=== PATIENT | male | born 1970 | race Two or more races ===

== ENCOUNTER → 2016-08-08 | Outpatient (CLI) | payer MEDICAID, MEDICARE | LOC: RAD 08:39 | PROVIDERS: ATTEND Internal Medicine | DX: N18.3 Chronic kidney disease, stage 3 (moderate) (principal); Z94.4 Liver transplant status | CPT/HCPCS: 76705; 93976 ==

== ENCOUNTER → 2016-08-11 | Outpatient (CLI) | payer MEDICARE | LOC: RAD 09:08 | PROVIDERS: ATTEND Internal Medicine Gastroenterology | DX: K44.0 Diaphragmatic hernia with obstruction, without gangrene (principal); R07.1 Chest pain on breathing; R05 Cough; Z94.4 Liver transplant status | CPT/HCPCS: 71260; 74160 ==

== ENCOUNTER 2017-04-24 20:02 | Emergency (ER) | payer MEDICARE, MEDICAID ==
--- NOTE | 2017-04-24 21:18 | ER Document Report ---
HPI - HPI Patient complains to provider of: lump in neck Onset: This morning Onset/Duration: Sudden Pain Level: Denies Context: 46 yo male noticed right neck lump this morning. Taking augmentin for respiraotry intection and eye drops for conjunctivitis. no fever. No pain. 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 IN LAST 30 DAYS: No - HEENT HEENT: Normocephalic. negative: Conjuctival Injection, Pharyngeal Erythema, Tympanic Membrane Red Notes: less than 1 cm right mid posterior cervial non tender, mobile, not red lymph node - RESPIRATORY O2 Sat by Pulse Oximetry: 95 Course - Vital Signs Vital signs: Temp Pulse Resp BP Pulse Ox 98.4 F 66 16 94/61 L 95 04/24/17 20:10 04/24/17 20:10 04/24/17 20:10 04/24/17 20:10 04/24/17 20:10 Discharge - Discharge Clinical Impression: right posterior cervial lymph node Condition: Good Disposition: HOME, SELF-CARE Instructions: Cervical Lymphadenitis ([facility]) Additional Instructions: Continue the antibiotics that you got from the urgent care Follow-up Dr. Gordon Return for any concerns to the emergency room. Referrals: VANDANA GORDON DO [Primary Care Provider] - Follow up in 1 week
[2017-04-24 21:41] VITALS: BP 97/68
== END 2017-04-24 21:41 | disposition home or self-care (01) ==
LOC: ER 20:02
DX: R22.1 Localized swelling, mass and lump, neck (principal)
CPT/HCPCS: 99283

== ENCOUNTER → 2017-05-19 | Outpatient (CLI) | payer MEDICARE, MEDICAID ==
--- NOTE | 2017-05-19 10:29 | RADIOLOGY REPORT (SQ) ---
EXAM DESCRIPTION: U/S ABDOMEN LIMITED W/O DOP COMPLETED DATE/TIME: 05/19/2017 9:59 am REASON FOR STUDY: S/P LIVER TRANSPLANT (Z94.4), HEPATOCELLULAR CARCINOMA (C22.0), ALCOHOLIC C Z29.8 ENCOUNTER FOR OTHER SPECIFIED PROPHYLACTIC MEASURES Z94.4 LIVER TRANSPLANT STATUS E27.40 UNSPECIFI ED ADRENOCORTICAL INSUFFICIENCY COMPARISON: August. TECHNIQUE: Dynamic and static grayscale images acquired of the abdomen and recorded on PACS. Additio nal selected color Doppler and spectral images recorded. LIMITATIONS: None. FINDINGS: PANCREAS: No masses. Visualized pancreatic duct normal caliber. LIVER: Mildly echogenic, heterogeneous echo pattern. This looks stable without evidence of developin g mass. Liver measures just at 17 cm, slightly smaller compared to prior. LIVER VASCULATURE: Normal directional flow of the main portal vein and hepatic veins. Patent hepatic artery. GALLBLADDER: Surgically absent. ULTRASOUND-DETECTED MADRID'S SIGN: Not applicable. INTRAHEPATIC DUCTS AND COMMON DUCT: CBD and intrahepatic ducts normal caliber. No filling defects. INFERIOR VENA CAVA: Normal flow. AORTA: No aneurysm. RIGHT KIDNEY: Normal size. Normal echogenicity. No solid or suspicious masses. No hydronephrosis. No calcifications. PERITONEAL AND RIGHT PLEURAL SPACE: No ascites or effusions. OTHER: No other significant findings. IMPRESSION: Generally stable appearance of the liver transplant. No developing lesions or ascites. Major vascular structures are patent. TECHNICAL DOCUMENTATION: JOB ID: [id number] [employer]- All Rights Reserved
== END ==
LOC: RAD 08:45
PROVIDERS: ATTEND Internal Medicine
DX: C22.0 Liver cell carcinoma (principal); K70.31 Alcoholic cirrhosis of liver with ascites; Z94.4 Liver transplant status
CPT/HCPCS: 76705

== ENCOUNTER 2017-12-14 20:34 | Emergency (ER) | payer MEDICARE, MEDICAID ==
[2017-12-14 21:27] VITALS: BP 123/73
--- NOTE | 2017-12-14 22:42 | RADIOLOGY REPORT (SQ) ---
EXAM DESCRIPTION: KNEE RIGHT 4 VIEWS COMPLETED DATE/TIME: 12/14/2017 10:08 pm REASON FOR STUDY: pain COMPARISON: None. NUMBER OF VIEWS: Four views. TECHNIQUE: AP, lateral, and both oblique radiographic images acquired of the right knee. LIMITATIONS: None. FINDINGS: MINERALIZATION: Normal. BONES: No acute fracture or dislocation. No worrisome bone lesions. JOINT: No effusion. SOFT TISSUES: No soft tissue swelling. No radio-opaque foreign body. OTHER: No other significant finding. IMPRESSION: NEGATIVE STUDY OF THE RIGHT KNEE. NO RADIOGRAPHIC EVIDENCE OF ACUTE INJURY. TECHNICAL DOCUMENTATION: JOB ID: [id number] [employer]- All Rights Reserved Reading location - IP/workstation name: [email or web address]
--- NOTE | 2017-12-14 22:46 | ER Document Report ---
ED Extremity Problem, Lower - General Chief Complaint: Knee Pain Stated Complaint: KNEE PAIN Time Seen by Provider: 12/14/17 22:23 Mode of Arrival: Ambulatory Information source: Patient Notes: Patient with complaint of right knee pain x1 week, denies injury. Patient reports that pain is worse with ambulation. Denies history of pain to this knee prior to this. TRAVEL OUTSIDE OF THE [place] IN LAST 30 DAYS: No - Related Data Allergies/Adverse Reactions: No Known Allergies Allergy (Verified 12/30/15 09:01) Past Medical History - General Information source: Patient - Social History Smoking Status: Never Smoker Frequency of alcohol use: None Drug Abuse: None Family History: Reviewed & Not Pertinent Patient has suicidal ideation: No Patient has homicidal ideation: No - Past Medical History Cardiac Medical History: Denies: Hx Coronary Artery Disease, Hx Heart Attack, Hx Hypertension Pulmonary Medical History: Denies: Hx Asthma, Hx Bronchitis, Hx COPD, Hx Pneumonia Neurological Medical History: Denies: Hx Cerebrovascular Accident, Hx Seizures Renal/ Medical History: Denies: Hx Peritoneal Dialysis GI Medical History: Reports: Hx 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, transplant Musculoskeletal Medical History: Denies Hx Arthritis Past Surgical History: Reports: Hx Vascular Surgery - left leg graft - Immunizations Hx Diphtheria, Pertussis, Tetanus Vaccination: No Review of Systems - Review of Systems Constitutional: No symptoms reported EENT: No symptoms reported Cardiovascular: No symptoms reported Respiratory: No symptoms reported Gastrointestinal: No symptoms reported Genitourinary: No symptoms reported Male Genitourinary: No symptoms reported Musculoskeletal: See HPI Skin: No symptoms reported Hematologic/Lymphatic: No symptoms reported Neurological/Psychological: No symptoms reported Physical Exam - Vital signs Vitals: Temp Pulse Resp BP Pulse Ox 98.6 F 71 17 123/73 99 12/14/17 20:34 12/14/17 20:34 12/14/17 20:34 12/14/17 20:34 12/14/17 20:34 - Notes Notes: PHYSICAL EXAMINATION: GENERAL: Well-appearing, well-nourished and in no acute distress. HEAD: Atraumatic, normocephalic. EYES: Pupils equal round and reactive to light, extraocular movements intact, sclera anicteric, conjunctiva are normal. ENT: nares patent, oropharynx clear without exudates. Moist mucous membranes. NECK: Normal range of motion, supple without lymphadenopathy LUNGS: Breath sounds clear to auscultation bilaterally and equal. No wheezes rales or rhonchi. HEART: Regular rate and rhythm without murmurs ABDOMEN: Soft, nontender, normoactive bowel sounds. No guarding, no rebound. No masses appreciated. EXTREMITIES: Limited range of motion to right knee, TTP to anteriorlateral surface of knee. No erythema, mild swelling. NEUROLOGICAL: No focal neurological deficits. Moves all extremities spontaneously and on command. PSYCH: Normal mood, normal affect. SKIN: Warm, Dry, normal turgor, no rashes or lesions noted. Course - Re-evaluation Re-evalutation: Patient with right knee pain, worse with ambulation. Patient reports he has an appointment set up with his primary care provider on Monday to have this evaluated however the pain was too severe to wait to be seen Monday. Denies injury or trauma. No erythema and no fevers. Unlikely septic joint. Xray negative for dislocation, fracture or effusion. Patient with slow gait and facial grimacing during ambulation and exam. Will discharge with short course of pain medications until he can see primary on Monday. - Vital Signs Vital signs: Temp Pulse Resp BP Pulse Ox 98.6 F 71 17 123/73 99 12/14/17 20:34 12/14/17 20:34 12/14/17 20:34 12/14/17 20:34 12/14/17 20:34 Discharge - Discharge Clinical Impression: Knee pain, right Qualifiers: Chronicity: acute Qualified Code(s): M25.561 - Pain in right knee Condition: Stable Disposition: HOME, SELF-CARE Additional Instructions: Your knee x-ray today was normal meaning there are no fractures or abnormal findings to the bones. It is possible that you have pulled a muscle or a ligament in the knee. The Alexis wrap for comfort. Take the hydrocodone. Keep your follow-up appointment that you have with Dr. Gordon for Monday. You may want to consider physical therapy or potentially getting an MRI done. Knee Exercise Program It's important to strengthen the muscles around the knee. This protects the injured area and stabilizes a knee that's been loosened by ligament injury. EARLY - Even when motion of the knee is painful (even when wearing a splint ), you can begin isometric "quads" exercises. While sitting, hold the knee out, and contract the muscles to stiffen it. It shouldn't be straightened all the way -- stiffen it in a slightly-bent position. Lift the leg and draw a "T" with your foot, up to 100 times. When it becomes easy, add a weight on your foot. LATE - When the doctor advises you, you can begin moving the knee against resistance. The front muscles (quadriceps) are most important. While sitting at a [employer], straighten the knee forcefully while pushing a weight up with your ankle. Start with five to 10 pounds. Do 10 to 20 repetitions, increasing the weight as tolerated. Don't use more weight than is comfortable! Over a few weeks, work up to 35 to 50 pounds. Athletes should try to reach 70 to 90 pounds. Prescriptions: Hydrocodone/Acetaminophen [[place] 5-325 mg Tablet] 1 tab PO Q6 PRN #10 tablet PRN Reason: For Pain Referrals: VANDANA GORDON, [Primary Care Provider] - Follow up as needed
[2017-12-14] MEDS ORDERED: HYDROCODONE/ACETAMINOPHEN 5-325 MG TABLET PO ONE (23:17)
== END 2017-12-14 23:35 | disposition home or self-care (01) ==
LOC: ER 20:34
DX: M25.561 Pain in right knee (principal)
CPT/HCPCS: 99283; 73564; A9270

== ENCOUNTER → 2018-04-17 | Outpatient (CLI) | payer MEDICARE, MEDICAID ==
--- NOTE | 2018-04-17 12:12 | RADIOLOGY REPORT (SQ) ---
EXAM DESCRIPTION: KNEE RIGHT 4 VIEWS COMPLETED DATE/TIME: 04/17/2018 11:49 am REASON FOR STUDY: RT ANTERIOR KNEE PAIN M25.561 PAIN IN RIGHT KNEE chronic pain in the right knee f or 5 years, worsening lately COMPARISON: Right knee four views 12/14/2017 NUMBER OF VIEWS: Four views. TECHNIQUE: AP, lateral, and both oblique radiographic images acquired of the right knee. LIMITATIONS: None. FINDINGS: MINERALIZATION: Normal. BONES: No acute fracture or dislocation. No worrisome bone lesions. JOINT: No effusion. SOFT TISSUES: No soft tissue swelling. No radio-opaque foreign body. OTHER: No other significant finding. IMPRESSION: NEGATIVE STUDY OF THE RIGHT KNEE. NO RADIOGRAPHIC EVIDENCE OF ACUTE INJURY. TECHNICAL DOCUMENTATION: JOB ID: [id number] [employer]- All Rights Reserved Reading location - IP/workstation name: [email or web address]
== END ==
LOC: OD 11:39
PROVIDERS: ATTEND Family Medicine
DX: M25.561 Pain in right knee (principal)

== ENCOUNTER → 2018-09-20 | Outpatient (CLI) | payer MEDICARE, MEDICAID ==
[2018-09-20 14:05] LABS: INTERNATIONAL RATION (INR) 1.21; PROTHROMBIN TIME 15.9 SEC (11.4-15.4)
[2018-09-20 14:10] LABS: ABSOLUTE EOSINOPHILS # (AUTO) 0.2 10^3/uL (0.0-0.6); ABSOLUTE LYMPHOCYTES (AUTO) 1.8 10^3/uL (0.5-4.7); ABSOLUTE MONOCYTES (AUTO) 0.2 10^3/uL (0.1-1.4); BASOPHILS % (AUTO) 1.1 % (0-2); HEMATOCRIT 41.6 % (37.9-51.0); HEMOGLOBIN 14.2 g/dL (13.5-17.0); LYMPHOCYTES % (AUTO) 42.9 % (13-45); MEAN CORPUSCULAR HEMOGLOBIN 31.6 pg (27.0-33.4); MEAN CORPUSCULAR HGB CONC 34.1 g/dL (32.0-36.0); MEAN CORPUSCULAR VOLUME 93 fl (80-97); MONOCYTES % (AUTO) 4.2 % (3-13); PLATELET COUNT 110 10^3/uL (150-450); RED CELL DISTRIBUTION WIDTH 15.4 % (11.5-14.0); SEGMENTED NEUTROPHILS % (AUTO) 47.8 % (42-78); TOTAL CELLS COUNTED % (AUTO) 100 %; WHITE BLOOD COUNT 4.2 10^3/uL (4.0-10.5)
[2018-09-20 14:36] LABS: ALANINE AMINOTRANSFERASE 34 U/L (21-72); ALBUMIN 4.4 g/dL (3.5-5.0); ALKALINE PHOSPHATASE 89 U/L (38-126); ANION GAP 13 (5-19); ASPARTATE AMINO TRANSFERASE 61 U/L (17-59); BILIRUBIN,DIRECT 0.8 mg/dL (0.0-0.4); BILIRUBIN,TOTAL 1.9 mg/dL (0.2-1.3); BLOOD UREA NITROGEN 22 mg/dL (7-20); CALCIUM 9.3 mg/dL (8.4-10.2); CARBON DIOXIDE 24 mmol/L (22-30); CHLORIDE 103 mmol/L (98-107); GLUCOSE 119 mg/dL (75-110); POTASSIUM 4.2 mmol/L (3.6-5.0); SODIUM 139.5 mmol/L (137-145); TOTAL PROTEIN 9.2 g/dL (6.3-8.2)
== END ==
LOC: OD 12:28
PROVIDERS: ATTEND Orthopaedic Surgery
DX: Z01.812 Encounter for preprocedural laboratory examination (principal); M22.41 Chondromalacia patellae, right knee; Z94.4 Liver transplant status
CPT/HCPCS: 36415; 80048; 80076; 85025; 85610